=== PATIENT | female | born 1985 | race Caucasian/White ===

== ENCOUNTER 2019-07-13 06:49 | Emergency (ER) | payer BC, SELFPAY ==
--- NOTE | 2019-07-13 06:55 | ED.GENADUL_ITS ---
Discharge Plan Disposition Patient Disposition: HOME Condition: Stable Discharge Details Chief Complaint: Sorethroat Clinical Impression: Pharyngitis Primary Care Provider: Unknown,Unknown ED Provider: Peyman Wan Home Meds and New Rx's Prescriptions: New amoxicillin 500 mg tablet 500 mg PO BID Qty: 20 RF: 0 Discharge Instructions Instructions: Pharyngitis (ED) Additional Instructions: you can take 1000mg tylenol and 600mg ibuprofen every 6 hours for pain as needed if not better in 3 days follow up with your primary care provider if you have inability to swallow liquids or difficulty breathing return to the emergency department Medical Decision Making 34 yo female with no chronic medical problems comes in with several days of sore throat. Denies fevers, drooling, and changes in voice. She arrives in no distress speaking in full sentences with no stridor or drooling. HAs erythema of posterior pharynx with midline uvula, no pain over hyoid, no findings to suggest rpa, captain fire prevention bureau, epiglotitis. Appears to have phyarngitis, will check for strep strep test is positive, will start amoxicillin and advised f/u with pcp and re turn precautions given Differential Diagnosis Differential Diagnosis: pharyngitis, strep, rpa, captain fire prevention bureau, epiglotitis HPI General Mode of arrival: ambulatory . Date/Time Provider Initiated Documentation: 07/13/19 06:52 . Limitations to Documentation: no limitations . Information obtained by: patient . History of Present Illness 34 year old F presents to the emergency department with the chief complaint of sore throat, described as moderate, Patient started experiencing this day(s) (3) and it has been constant. No relieving factors improve symptom(s), No exacerbating factors reported . Patient did receive the following treatments prior to arrival, none Related Data Home Medications Medication Instructions Recorded Confirmed amoxicillin 500 mg PO BID #20 tab 07/13/19 Previous Rx's Medication Instructions Recorded amoxicillin 500 mg PO BID #20 tab 07/13/19 Allergies Allergy/AdvReac Type Severity Reaction Status Date / Time No Known Allergies Allergy Unverified 07/13/19 07:02 Review of Systems Review of Systems ROS Unobtainable: All systems reviewed & are unremarkable except as noted in HPI and below Constitutional Constitutional: Denies chills and Denies fever(s) Cardiovascular Cardiovascular: Denies chest pain and Denies dyspnea Respiratory Respiratory: Denies dyspnea Gastrointestinal Gastrointestinal: Denies abdominal pain, Denies nausea and Denies vomiting Musculoskeletal Musculoskeletal: Denies joint swelling Psychiatric Psychiatric: Denies depression PFSH Social History Smoking/Tobacco Use Status: Never Alcohol Intake: never Substance use type: does not use Exam Const General: no acute distress Orientation: alert HENMT Head: normal to inspection Ears: external ears normal General nose exam: external nose normal Mouth: moist mucous membranes Eyes General: appearance normal, both eyes and all related structures Neck Neck: normal visual inspection Resp Effort & Inspection: normal respiratory effort and able to speak in complete sentences Cardio Rate: regular rate Skin General skin exam: no rashes or lesions noted Neuro General: alert and oriented x3 Extrem General: normal to inspection Psych Mental Status: mental status grossly normal
[2019-07-13 07:00] VITALS: BP 138/80; PULSE 124; RESP 16; TEMP 36.8; O2SAT 99
== END 2019-07-13 07:10 | disposition home or self-care (01) ==
LOC: ER 07:34
PROVIDERS: Emergency Provider Emergency Medicine
DX: J02.9 Acute pharyngitis, unspecified (principal)
CPT/HCPCS: 87880; 99283

== ENCOUNTER 2023-03-18 17:25 | Emergency (ER) | payer BC, SELFPAY ==
[2023-03-18 17:28] VITALS: BP 153/69; PULSE 90; RESP 18; TEMP 37.3; O2SAT 99
--- NOTE | 2023-03-18 17:45 | ED.GENADUL_ITS ---
Discharge Plan Disposition Patient Disposition: Home Condition: Stable Discharge Details Clinical Impression: Strep pharyngitis Primary Care Provider: Ann Marie Tejada ED Provider: Laquita Jean Baptiste Home Meds and New Rx's Prescriptions: No Action famotidine [Pepcid] 20 mg tablet 10 - 20 mg PO DAILY PRN amoxicillin 500 mg capsule 500 mg PO BID Qty: 20 0RF Rx Instructions: Take 1 capsule every 12 hours x 10 days Discharge Instructions Instructions: Strep Throat (ED) Additional Instructions: The strep swab was positive today. Gargle with warm salt water 3 times daily as needed. Please take Tylenol or Ibuprofen with food every 4-6 hours as needed for pain and swelling. You are given a one-time injection of penicillin which should treat the strep throat. You may still be contagious for the next 48 to 72 hours. Follow up with primary care provider in 3-5 days. Return to ED sooner if any worsening or concerns. Increase oral fluids. Stand Alone Forms: Work Release Referrals: Ann Marie Tejada, PLASTICS TOOLING ENGINEER [Primary Care Provider] - 1 week Medical Decision Making 37-year-old female presents to the ER with a chief complaint of throat pain which began this morning. No exudate noted but is erythemic tonsils 2+ bilaterally. Denies cough. Lungs are clear to auscultation bilaterally. Is associated with body aches. Has not had any Tylenol or ibuprofen prior to arrival. Speaking in a clear voice no hot potato voice. Uvula is midline. Rapid strep positive. Discussed results with patient who verbalized understanding. I did give her the option of oral antibiotics versus Bicillin IM. She request Bicillin IM. Discussed risks benefits and home care. This text was generated using [employer] system, please disregard any oddities of phrase or misspellings. HPI General Mode of arrival: ambulatory . Date/Time Provider Initiated Documentation: 03/18/23 17:32 . Limitations to Documentation: no limitations . Information obtained by: patient, RN notes reviewed and old records reviewed . HPI Narrative: 37-year-old female presents to the ER with a chief complaint of throat pain which began this morning. No exudate noted but is erythemic tonsils 2+ bilaterally. Denies cough. Lungs are clear to auscultation bilaterally. Is associated with body aches. Has not had any Tylenol or ibuprofen prior to arrival. Speaking in a clear voice no hot potato voice. Uvula is midline. Related Data Home Medications Medication Instructions Recorded Confirmed amoxicillin 500 mg capsule 500 mg PO BID #20 caps 09/12/22 09/12/22 famotidine 20 mg tablet (Pepcid) 10 - 20 mg PO DAILY PRN 09/12/22 03/18/23 Previous Rx's Medication Instructions Recorded amoxicillin 500 mg capsule 500 mg PO BID #20 caps 09/12/22 Allergies Allergy/AdvReac Type Severity Reaction Status Date / Time No Known Allergies Allergy Unverified 09/12/22 18:24 General Stated Complaint: Sorethroat BIBIANA: 4 Review of Systems ENT Ears, Nose, Mouth, and Throat: Reports as per HPI and Reports sore throat Cardiovascular Cardiovascular: Denies dyspnea Respiratory Respiratory: Denies cough and Denies dyspnea PFSH All Active Problems (Updated 03/18/23 @ 18:03 by Laquita Jean Baptiste NP) Strep pharyngitis (Acute) Medical History Acid reflux Encounter for IUD removal laparoscopic removal Family history of melanoma Heart murmur Pineal gland cyst Remove/insert IUD Tendinitis of both wrists Family History Father Asthma Mother H/O: hysterectomy Sister Luis-Suleiman syndrome Alcohol use disorder Anxiety Asthma Maternal Uncle Melanoma Paternal Grandfather Prostate cancer Heart disease Paternal Grandmother Diabetes Paternal Uncle Diabetes Maternal Grandfather Diabetes Maternal Grandmother Hypertension Social History Smoking/Tobacco Use Status: Never Smoking risk assessment performed?: Yes Alcohol Intake: current Alcohol Intake frequency: holidays/special occasions only Details: 2-4 times a month, 1-2 at a time Drug use: Never Substance use type: does not use Adopted: No Caregiver/Support person: No Foster care: No Household members: spouse Housing: house Number of Children: 2 number of grandchildren: 0 Communication Needs: None Do you need help understanding health information?: Never 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 Pets and animals: Yes (1) Pets and animals: dog(s) Sexually active: Yes Do you think of yourself as: straight/heterosexual Current gender identity: female What is your relationship status?: How often do you talk on the phone with friends or family?: three or more times per week How often do you get together with friends or relatives?: three or more times per week Do you belong to any clubs or organized social groups?: no Panel score (0-1 are the most socially isolated patients): 2 What type of physical activity do you participate in: walking, bicycling and additional Details: alpine skiing Special madelaine needs: No Seatbelt use: always Helmet use: Yes Drive intox or ride w/intox front loader residential driver: No Do you feel safe at home: Yes Do you feel safe in your relationship?: Yes Exam Narrative Exam Narrative: Constitutional: Alert and oriented x3. Appears stated age. Normal body habitus. Head: Normocephalic, no trauma. Eyes: Pupils PERRL, Red reflex noted, EOM's intact. Eyelids symmetrical without lesions, discharge, or swelling. ENT: See below Chest: RRR, Normal S1, S2, distal pulses intact. Resp: Lungs clear to auscultation bilaterally, no wheezes, rales, or rhonchi. [facility] Head: normal to inspection General nose exam: external nose normal and nares normal Face and sinus: normal facial exam Mouth: oral mucosae normal, lip normal, tongue normal, no drooling, no muffled voice, no trismus and No restricted motion Teeth and gingiva: dentition normal Throat: uvula midline, abnormal tonsil bilaterally hypertrophy 2+ and posterior oropharynx abnormal edema and erythema Neck Neck: normal visual inspection and full ROM Course Vital Signs Vital signs: Vital Signs Temperature 37.3 C 03/18/23 17:28 Pulse 90 03/18/23 17:28 Respiratory Rate 18 03/18/23 17:28 Blood Pressure 153/69 H 03/18/23 17:28 Pulse Oximetry 99 03/18/23 17:28 Temperature 37.3 C 03/18/23 17:28 Temperature Source Oral 03/18/23 17:28 Pulse 90 03/18/23 17:28 Respiratory Rate 18 03/18/23 17:28 Blood Pressure 153/69 H 03/18/23 17:28 Blood Pressure Position Sitting 03/18/23 17:28 Pulse Oximetry 99 03/18/23 17:28 Oxygen Delivery Method Room Air 03/18/23 17:28 Oxygen Flow Rate 0 03/18/23 17:28 Lab/Test Results Lab/Test Results: POC Strep Test-ARELIS(Rapid) Start: 03/18/23 17:32 Freq: .Rapid Strep Test Status: Active Protocol: Document 03/18/23 17:44 CB (Rec: 03/18/23 17:44 [id number]) Strep test-ARELIS(Rapid)-POC POC-Strep test-ARELIS (Rapid) Positive POC-Strep test-ARELIS (Rapid) Positive
[2023-03-18] MEDS: Acetaminophen 500 MG TAB PO (18:03)
[2023-03-18] MEDS: Dexamethasone 10 MG/ML VIAL PO (18:03)
== END 2023-03-18 18:16 | disposition home or self-care (01) ==
PROVIDERS: Emergency Provider Registered Nurse Emergency; PCP Nurse Practitioner Family
DX: J02.0 Streptococcal pharyngitis (principal)
CPT/HCPCS: 87880; 96372; 99284; J0561; J1100

== ENCOUNTER 2024-05-22 19:16 | Outpatient (REF) | payer BC, SELFPAY ==
[2024-05-22 21:41] LABS: Calculated LDL 90 mg/dL (<100); Cholesterol 161 mg/dL (<200); HDL Cholesterol 47 mg/dL (40-60); Triglyceride 122 mg/dL (<150)
[2024-05-25 10:06] LABS: Lipoprotein (a) 7 nmol/L (<75)
== END 2024-05-22 19:17 | disposition home or self-care (01) ==
LOC: NCHCN 19:16
PROVIDERS: Visit Provider Family Medicine
DX: Z13.220 Encounter for screening for lipoid disorders (principal)
CPT/HCPCS: 80061; 83695

== ENCOUNTER 2024-07-23 15:08 | Outpatient (REF) | payer BC, SELFPAY ==
--- NOTE | 2024-07-23 10:30 | SKI_PTH ---
PATIENT: Odalys Foster LOC: [facility] U#:[id number] AGE/SX: 39/F ROOM: RE07/23/[address]: Ra Cole : 1985 BED: DIS: 07/23/2024 SPEC #: [id number] RECD: 07/23/24 17:10 STATUS: RAMON REQ #: [id number] LOS: 07/23/24 10:[address]: Ra Cole DEPT: Surgical Specimen RECD BY: Jossie Nichols ENTERED: 07/23/24 17:11 SP TYPE: JOVAN TINEO DR: Unknown,Unknown Tissues: 1 - SKIN BIOPSY(SHAVE/PUNCH) Procedures: SKIN LEVEL 4 Comments: [id number]
== END 2024-07-23 15:09 | disposition home or self-care (01) ==
LOC: LBN 15:08
PROVIDERS: Visit Provider Family Medicine
DX: D22.72 Melanocytic nevi of left lower limb, including hip (principal)
CPT/HCPCS: 88305

== ENCOUNTER 2024-09-11 16:16 | Outpatient (REF) | payer BC, SELFPAY ==
[2024-09-11 19:54] LABS: Abs Immature Grans 0.04 10^3/uL (0.0-0.06); Absolute Basophil Count 0.05 10^3/uL (0.0-0.2); Absolute Lymphocyte Count 2.71 10^3/uL (1.2-3.4); Absolute Monocyte Count 0.62 10^3/uL (0.1-0.8); Absolute Neutrophil Count 5.45 10^3/uL (1.2-6.7); Basophils % 0.6 %; Eosinophils % 1.1 %; HCT 43.9 % (36.0-46.0); HGB 14.3 g/dL (11.2-15.7); Immature Grans % 0.4 %; Lymphocytes % 30.2 %; MCH 30.4 pg (27.0-33.0); MCHC 32.6 % (32.0-36.0); MCV 93 fL (80-95); Monocytes % 6.9 %; Neutrophils % 60.8 %; Platelet Count 320 10^3/uL (130-400); RDW 12.5 % (11.7-14.6); RDW-SD 43.1 fL; WBC 8.97 10^3/uL (4.4-10.8)
[2024-09-11 20:28] LABS: TSH (W/Ref FT4) 1.37 uIU/mL (0.36-3.74); Vitamin B12 246 pg/mL (193-986); Vitamin D 25 Total 33.1 ng/mL (30-100)
== END 2024-09-11 16:17 | disposition home or self-care (01) ==
LOC: NCHCN 16:16
PROVIDERS: Visit Provider Family Medicine
DX: R53.83 Other fatigue (principal)
CPT/HCPCS: 82306; 82607; 84443; 85025

== ENCOUNTER 2025-09-07 20:12 | Emergency (ER) | payer BC, SELFPAY ==
[2025-09-07] VITALS (26 sets, daily range): BP systolic 103–159; BP diastolic 53–91; PULSE 60–90; RESP 8–18; TEMP 36.6; O2SAT 95–99
--- NOTE | 2025-09-07 20:00 | RT.EKG_ITS ---
APPROVED REPORT Exam: Resting ECG Reason for Exam: palpitations Patient Location: E HR:78 bpm ECG Measurements Heart Rate 78 AXIS MS 129 P 78 QRSd 83 QRS 78 QT 386 T 51 QTc 439 Conclusion Sinus rhythm...normal P axis, V-rate 60- 99 No STEMI
[2025-09-07 21:35] LABS: Abs Immature Grans 0.03 10^3/uL (0.0-0.06); HCT 39.9 % (36.0-46.0); HGB 13.6 g/dL (11.2-15.7); Immature Grans % 0.3 %; MCH 30.2 pg (27.0-33.0); MCHC 34.1 % (32.0-36.0); MCV 89 fL (80-95); MPV 9.4 fL (8.0-11.0); Platelet Count 311 10^3/uL (130-400); RBC 4.50 10^6/uL (3.93-5.22); RDW 12.3 % (11.7-14.6); RDW-SD 40.1 fL; WBC 10.57 10^3/uL (4.4-10.8)
[2025-09-07] MEDS: Normal Saline 1,000 ML 1000 ML IV (21:42)
[2025-09-07 21:51] LABS: Magnesium 2.1 mg/dL (1.6-2.6)
[2025-09-07 21:52] LABS: HCG Qual (Serum) Negative
[2025-09-07 21:53] LABS: ALT 28 U/L (10-49); AST 28 U/L (<34); Albumin 4.3 g/dL (3.4-5.0); Alkaline Phosphatase 75 U/L (46-116); Anion Gap 7.6 mmol/L (3-11); BUN 18 mg/dL (9-23); Bilirubin, Total 0.30 mg/dL (0.2-1.2); CO2 26.4 mmol/L (20.0-31.0); Calcium 9.2 mg/dL (8.3-10.6); Chloride 107 mmol/L (98-107); Glucose 103 mg/dL (74-106); Potassium 3.7 mmol/L (3.5-5.1); Sodium 141 mmol/L (136-145); Total Protein 7.1 g/dL (5.7-8.2)
[2025-09-07 21:56] LABS: TSH (W/Ref FT4) 2.22 uIU/mL (0.55-4.78)
[2025-09-07 21:59] LABS: Glucose Negative (Negative)
[2025-09-07 22:01] LABS: Troponin I < 3 ng/L (<35)
[2025-09-07 22:07] LABS: C & S Indicated? No; RBC 0-2 HPF (0-2); WBC Negative HPF (0-5)
--- NOTE | 2025-09-10 09:16 | ED.GENADUL_ITS ---
Discharge Plan Disposition Patient Disposition: Home Condition: Stable Discharge Details Clinical Impression: Heart palpitations Primary Care Provider: Maricruz Gilbert ED Provider: Jossie Solo Home Meds and New Rx's Prescriptions: Continued famotidine [Pepcid] 20 mg tablet 10 - 20 mg PO DAILY PRN cholecalciferol (vitamin D3) 25 mcg (1,000 unit) tablet See Rx Instructions PO DAILY Rx Instructions: 1-2 tablets orally daily; Discharge Instructions Instructions: Palpitations ED Additional Instructions: Please follow-up with your primary care physician tomorrow Your tests today are very reassuring You may benefit from having a monitor or Zio patch or Holter monitor Please make sure you are drinking at least 64 oz of water daily Please return should you develop chest pain, recurrent symptoms, or worsening concerns Stand Alone Forms: Portal Information Discharge Data Discharge Date/Time-TO BE ENTERED AT DEPARTURE: 09/07/25 23:19 HPI General Date/Time Provider Initiated Documentation: 09/07/25 20:55 . HPI Narrative: This 40-year-old female presents with palpitations that started this evening she has had similar symptoms in the past and has had Holter monitor placed, she states that she was told at that time she had PVCs. She states this feels that lasted for approximately 20 minutes which is atypical for her. She denies any medication she drinks a very small amount coffee daily denies any illicit substance use or chance of she has not transformations progesterone IUD. She denies any recent vaginal bulge flights, surgeries, or long drives. Related Data Home Medications Medication Instructions Recorded Confirmed famotidine 20 mg tablet (Pepcid) 10 - 20 mg PO DAILY P RN 09/12/22 09/07/25 cholecalciferol (vitamin D3) 25 See Rx Instructions PO DAILY 04/09/23 09/07/25 mcg (1,000 unit) tablet Allergies Allergy/AdvReac Type Severity Reaction Status Date / Time No Known Allergies Allergy Unverified 09/07/25 20:17 General Stated Complaint: Palpitatns BIBIANA: 3 Exam Narrative Exam Narrative: Alert and oriented. Female in no acute distress. answering questions appropriately, no calf swelling or tenderness. No peripheral edema, no respiratory distress. No thyromegaly. No rashes or lesions Course Vital Signs Vital signs: Vital Signs Temperature 36.6 C 09/07/25 20:13 Pulse 81 09/07/25 20:13 Respiratory Rate 18 09/07/25 20:13 Blood Pressure 159/91 H 09/07/25 20:13 Pulse Oximetry 98 09/07/25 20:13 Temperature 36.6 C 09/07/25 20:13 Temperature Source Tympanic 09/07/25 20:13 Pulse 66 09/07/25 23:18 Pulse 67 09/07/25 23:16 Respiratory Rate 14 09/07/25 23:18 Blood Pressure 113/63 09/07/25 23:18 Blood Pressure Mean 77 09/07/25 23:16 Pulse Oximetry 98 09/07/25 23:18 Oxygen Delivery Method Room Air 09/07/25 21:08 Oxygen Flow Rate 0 09/07/25 21:08 Pain Level 0 09/07/25 20:13 Lab/Test Results Lab/Test Results: Laboratory Tests Range/Units 09/07/25 09/07/25 09/07/25 21:28 21:45 22:19 WBC (4.4-10.8) 10^3/uL 10.57 RBC (3.93-5.22) 10^6/uL 4.50 Hgb (11.2-15.7) g/dL 13.6 Hct (36.0-46.0) % 39.9 MCV (80-95) fL 89 MCH (27.0-33.0) pg 30.2 MCHC (32.0-36.0) % 34.1 RDW (11.7-14.6) % 12.3 Plt Count (130-400) 10^3/uL 311 MPV (8.0-11.0) fL 9.4 Immature Gran % % 0.3 Neutrophils % % 56.7 Lymphocytes % % 32.5 Monocytes % % 7.7 Eosinophils % % 2.2 Basophils % % 0.6 Nucleated RBC % (0.0-0.3) % 0.0 Absolute Neutrophils (1.2-6.7) 10^3/uL 6.01 Absolute Lymphocytes (1.2-3.4) 10^3/uL 3.43 H Absolute Monocytes (0.1-0.8) 10^3/uL 0.81 H Absolute Eosinophils (0.0-0.7) 10^3/uL 0.23 Absolute Basophils (0.0-0.2) 10^3/uL 0.06 Sodium (136-145) mmol/L 141 Potassium (3.5-5.1) mmol/L 3.7 Chloride (98-107) mmol/L 107 Carbon Dioxide (20.0-31.0) mmol/L 26.4 Anion Gap (3-11) mmol/L 7.6 BUN (9-23) mg/dL 18 Creatinine (0.55-1.02) mg/dL 0.7 Est GFR (CKD-EPI 2020) (mL/min/1.73m2) 94.01 Glucose (74-106) mg/dL 103 Calcium (8.3-10.6) mg/dL 9.2 Magnesium (1.6-2.6) mg/dL 2.1 Total Bilirubin (0.2-1.2) mg/dL 0.30 AST (<34) U/L 28 ALT (10-49) U/L 28 Alkaline Phosphatase (46-116) U/L 75 Troponin I (<35) ng/L < 3 Cancelled Total Protein (5.7-8.2) g/dL 7.1 Albumin (3.4-5.0) g/dL 4.3 TSH (0.55-4.78) uIU/mL 2.22 Serum HCG, Qual Negative Urine Color (Yellow) Yellow Urine Clarity (Clear) Clear Urine pH (5-8) 7.0 Ur Specific Willow (1.005-1.025) 1.015 Urine Protein (Neg-Trace) mg/dL Negative Urine Ketones (Negative) mg/dL Negative Urine Blood (Negative) Trace-intact H Urine Nitrite (Negative) Negative Urine Bilirubin (Negative) Negative Urine Urobilinogen (Up to 0.2) mg/dL 0.2 Ur Leukocyte Esterase (Negative) Negative Urine RBC (0-2) HPF 0-2 Urine WBC (0-5) HPF Negative Ur Epithelial Cells (Negative) HPF Rare Urine Crystals (Negative) HPF Negative Urine Bacteria (Negative) HPF Negative Urine Casts (Negative) LPF Negative Urine Mucus (Negative) Negative Ur Culture Indicated? No Urine Glucose (Negative) mg/dL Negative POC- Test(urine) Negative Medical Decision Making Results: Diagnostic labs CBC and chemistry do not show any acute abnormality, electrolytes are within normal limits Assessment and plan: Patient presenting with palpitations, on telemetry she has sinus rhythm throughout her stay. Her electrolytes are within normal limits and she is otherwise quite stable. Her back to her primary care physician as she may need an outpatient Holter monitor or Zio patch. Return precautions reviewed and patient expressed understanding [facility] All Active Problems (Updated 09/07/25 @ 23:12 by YOUSIF Estrada) Heart palpitations (Acute) Lateral epicondylitis, left elbow (Acute) Heart murmur (Acute) Congenital; per pt benign & had an echo while which was [place] Acid reflux (Chronic) Family history of melanoma (Acute) Medical History Pineal gland cyst F/u scans stable; records requests Strep pharyngitis (03/18/23) Tendinitis of both wrists Surgical History Encounter for IUD removal (05/2017) migrated to pelvis; laparoscopic removal Family History Father Asthma Mother H/O: hysterectomy Sister Luis-Suleiman syndrome Alcohol use disorder Anxiety Asthma Maternal Uncle Melanoma Paternal Grandfather Prostate cancer Heart disease Paternal Grandmother Diabetes Paternal Uncle Diabetes Maternal Grandfather Diabetes Maternal Grandmother Hypertension Social History Smoking/Tobacco Use Status: Never Smoking risk assessment performed?: Yes Alcohol Intake: current Alcohol Intake frequency: holidays/special occasions only Details: 2-4 times a month, 1-2 at a time Drug use: Never Substance use type: does not use Adopted: No Caregiver/Support person: No Foster care: No Household members: spouse Housing: house Number of Children: 2 number of grandchildren: 0 Communication Needs: None Do you need help understanding health information?: Never current occupation: Drying Machine Operator [employer] Pets and animals: Yes (1) Pets and animals: dog(s) Sexually active: Yes Do you think of yourself as: straight/heterosexual Current gender identity: female What is your relationship status?: How often do you talk on the phone with friends or family?: three or more times per week How often do you get together with friends or relatives?: three or more times per week Do you belong to any clubs or organized social groups?: no Panel score (0-1 are the most socially isolated patients): 2 What type of physical activity do you participate in: walking, bicycling and additional Details: alpine skiing Special madelaine needs: No Seatbelt use: always Helmet use: Yes Drive intox or ride w/intox limb driver: No Do you feel safe at home: Yes Do you feel safe in your relationship?: Yes
== END 2025-09-07 23:19 | disposition home or self-care (01) ==
PROVIDERS: Emergency Provider Physician Assistant; PCP Family Medicine
DX: R00.2 Palpitations (principal)
CPT/HCPCS: 99283; 99284; 36415; 81025; 80053; 93005; 81003; 81015; 83735; 84443; 84484; 84703; 85025; 93010

== ENCOUNTER 2025-09-10 09:18 | Outpatient (CLI) | payer BC, SELFPAY | END 2025-09-10 09:19 | disposition home or self-care (01) | PROVIDERS: PCP Family Medicine; Visit Provider Family Medicine | DX: R00.2 Palpitations (principal) | CPT/HCPCS: 93246 ==

== ENCOUNTER 2025-10-02 12:22 | Outpatient (CLI) | payer BC, SELFPAY ==
--- NOTE | 2025-10-02 13:29 | W.CARDEVENT ---
Date of service: 10/02/25 Time of Service: 13:29 Cardiac Event Recorder Referring Provider:: Maricruz Gilbert Indications:: Palpitations Cardiac Event Note: This is a cardiac event monitor. Patient was monitored for 13 days and 5 hours Rhythm throughout was sinus with an average heart rate of 73. Minimum was 45, maximum 162 A total of 4 premature ventricular contractions were recorded A total of 291 atrial premature beats were recorded. There were a very rare isolated PACs There was no atrial fibrillation, no SVT, no high-grade AV block, no pauses greater than 3 seconds. Multiple symptoms were reported all of which correlated to sinus rhythm
== END 2025-10-02 12:23 | disposition home or self-care (01) ==
LOC: CARDOPNVT 12:22
PROVIDERS: PCP Family Medicine; Visit Provider Internal Medicine Cardiovascular Disease
DX: R00.2 Palpitations (principal); I49.1 Atrial premature depolarization; I49.3 Ventricular premature depolarization
CPT/HCPCS: 93248